=== PATIENT | female | born 1970 | race Caucasian/White ===

== ENCOUNTER 2023-10-19 10:22 | Day surgery (SDC) | payer OTHER, SELFPAY ==
[2023-10-19] VITALS (14 sets, daily range): BP systolic 112–125; BP diastolic 62–71; BMI 36.3
[2023-10-19] MEDS: LOW STRENGTH ASPIRIN 324 MG PO (11:34)
[2023-10-19] MEDS: NSS 297 ML IV (11:36)
--- NOTE | 2023-10-19 14:00 | ITS.CL.CATH ---
[facility] - Catheterization
Cardiac Catheterization
Procedure Report:
CARDIAC CATHETERIZATION REPORT
Date of Procedure: 10/19/2023
Referring: Sadi Echavarria MD
HEMODYNAMIC DATA
AO: 126/78
LV: 126/15
LEFT VENTRICULOGRAPHY: Normal left-ventricular wall motion with EF 63%
CORONARY ANGIOGRAPHY
Dominance: Right
Left Main: Normal
LAD: Normal
Circumflex: Normal
RCA: Normal
Closure Device: 6 [place] Angio-Seal RFA. Of note, we were able to cannulate the right radial artery twice with a micropuncture needle but could not advance a soft wire more than 1-2 cm and transitioned to a femoral approach
Radiation (mGy): 129
DAP (cm2.Gy): 11.9
Fluoroscopy time: 2 minutes
CONCLUSIONS
1: Normal left ventricular wall motion with EF 63%
2: Normal coronary arteries
Copy to: Sadi Echavarria MD, Ruth Padilla MD
Ozzie Sosa MD, [facility], [facility]
== END 2023-10-19 17:00 | disposition home or self-care (01) ==
LOC: CATH 10:22
PROVIDERS: ATTENDING PHYSICIAN Internal Medicine Cardiovascular Disease; FAMILY PHYSICIAN Internal Medicine; OTHER PHYSICIAN Internal Medicine Cardiovascular Disease
DX: R07.9 Chest pain, unspecified (principal); I47.29 Other ventricular tachycardia; I48.0 Paroxysmal atrial fibrillation; E78.00 Pure hypercholesterolemia, unspecified; Z79.82 Long term (current) use of aspirin; Z79.01 Long term (current) use of anticoagulants
CPT/HCPCS: 93458; C1760; C1894; Q9967